=== PATIENT | female | born 1960 | race Caucasian/White ===

== ENCOUNTER 2017-11-11 15:22 | Outpatient (CLI) | payer MEDICARE ==
[~2017-11-11] VITALS: Ht 170.2 cm; Wt 83.9 kg
[2017-11-11 16:06] LABS: ABG BASE EXCESS -1.7 mmol/L (-2.0-3.0); ABG HCO3 22.8 mmol/L (22.0-26.0); ABG OXYGEN SATURATION 94.4 % (95-98); ABG PCO2 (T) 37.8 mmHg (32.0-45.0); ABG PH (T) 7.398 (7.350-7.450); ABG PO2 (T) 71.3 mmHg (83-108); ALLEN'S TEST Positive; FCOHb 1.9 % (0.5-1.5); FMetHb 0.3 % (0.3-1.12); FO2Hb 92.3 % (94-100); TOTAL HEMOGLOBIN 13.6 G/dl (12.0-16.0)
[2017-11-11] MEDS ORDERED: albuterol 2.5 MG/3 ML nebule NEB ONE (16:25)
== END 2017-11-11 23:59 | disposition home or self-care (01) ==
LOC: RT 15:22
PROVIDERS: ATTEND Family Medicine
DX: R06.09 Other forms of dyspnea (principal); F17.200 Nicotine dependence, unspecified, uncomplicated; Z79.899 Other long term (current) drug therapy
CPT/HCPCS: 36600; 82803; 85018; 94060; 94640; 94729; 94760

== ENCOUNTER 2019-06-20 21:57 | Emergency (ER) | payer MEDICARE ==
[~2019-06-20] VITALS: Ht 170.2 cm; Wt 72.7 kg
[~2019-06-20 21:57] MED LIST: ALBU18HF2 INH; AMIT25TA9 PO; CIPR250T4 PO; CLON-529 PO; INSU100I31 SQ; IPRA3AMP31 IH; LISI-600 PO; METF-438 PO; ONDA4TAB12 PO; OXYC20TA55 PO; RIZA10TA27 PO; SIMV40TA PO; UMEC1DIS INH
[2019-06-20 22:39] VITALS: BP 123/82
== END 2019-06-20 22:40 | disposition home or self-care (01) ==
LOC: ER 21:57
DX: S90.32XA Contusion of left foot, initial encounter (principal); E11.42 Type 2 diabetes mellitus with diabetic polyneuropathy; I10 Essential (primary) hypertension; J45.909 Unspecified asthma, uncomplicated; J44.9 Chronic obstructive pulmonary disease, unspecified; G89.29 Other chronic pain; F32.9 Major depressive disorder, single episode, unspecified; Z88.0 Allergy status to penicillin; Z88.8 Allergy status to other drugs, medicaments and biological substances; Z79.899 Other long term (current) drug therapy; Z79.2 Long term (current) use of antibiotics; Z79.4 Long term (current) use of insulin; Z90.710 Acquired absence of both cervix and uterus; W22.8XXA Striking against or struck by other objects, initial encounter; Y93.89 Activity, other specified; Y92.89 Other specified places as the place of occurrence of the external cause; Y99.8 Other external cause status
CPT/HCPCS: 73630; 99283